=== PATIENT | male | born 1995 | race Caucasian/White ===

== ENCOUNTER 2017-10-15 18:06 | Emergency (ER) | payer SELFPAY ==
[~2017-10-15] VITALS: Ht 175.3 cm; Wt 65.8 kg
[2017-10-15 18:28] VITALS: Ht 175.3 cm; Wt 65.8 kg
[2017-10-15 19:51] LABS: microscopic required? NO
[2017-10-15 20:32] LABS: urine erythrocyte NEGATIVE (NEGATIVE)
[2017-10-15 23:44] VITALS: BP 127/76
== END 2017-10-15 23:44 | disposition home or self-care (01) ==
LOC: ED 18:06
PROVIDERS: Emergency Medicine
DX: N45.3 Epididymo-orchitis (principal)
CPT/HCPCS: J0696; Q0092; Q0162